=== PATIENT | female | born 1980 | race Two or more races ===

== ENCOUNTER 2017-04-27 09:09 | Outpatient (CLI) | payer OTHER ==
[~2017-04-27 09:09] MED LIST: ORTHO TRI-7 DAYSX 3 PO; PROTONIX20 MG PO; ZANTAC150 M1 PO
== END 2017-04-27 09:22 | disposition home or self-care (01) ==
LOC: MAMO-SONO 09:09
DX: N60.21 Fibroadenosis of right breast (principal); N60.22 Fibroadenosis of left breast; R92.2 Inconclusive mammogram

== ENCOUNTER 2018-05-01 14:53 | Outpatient (CLI) | payer OTHER | END 2018-05-01 15:02 | disposition home or self-care (01) | LOC: MAMO-SONO 14:53 | DX: N60.21 Fibroadenosis of right breast (principal); N60.22 Fibroadenosis of left breast; R92.2 Inconclusive mammogram; Z12.31 Encounter for screening mammogram for malignant neoplasm of breast ==

== ENCOUNTER 2024-03-25 06:15 | Day surgery (SDC) | payer OTHER ==
[2024-03-25] MEDS ORDERED: MIDAZOLAM HCL 2 MG/2 ML VIAL IV ONE (09:00)
[2024-03-25] MEDS ORDERED: fentaNYL CITRATE 50 MCG/ML AMPUL IV PUSH ONE (09:00)
[2024-03-25] MEDS ORDERED: DIPHENHYDRAMINE HCL 50 MG/ML VIAL 1ML IV ONE (09:00)
== END 2024-03-25 10:45 | disposition home or self-care (01) ==
LOC: AMB-ENDOS 06:15
PROVIDERS: ATTEND Colon & Rectal Surgery
DX: D12.2 Benign neoplasm of ascending colon (principal); K63.5 Polyp of colon